=== PATIENT | male | born 2005 | race Caucasian/White ===

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

== ENCOUNTER → 2023-01-23 | Outpatient (CLI) | payer OTHER | END | disposition home or self-care (01) | LOC: US 10:30 | PROVIDERS: ATTEND Physician Assistant | DX: R03.0 Elevated blood-pressure reading, without diagnosis of hypertension (principal) ==

== ENCOUNTER 2024-08-09 01:22 | Emergency (ER) | payer OTHER ==
[~2024-08-09] VITALS: Ht 185.4 cm; Wt 122.5 kg
[2024-08-09] MEDS ORDERED: ENALAPRIL20 MG PO (01:32)
[2024-08-09] MEDS ORDERED: AVPAK AZITHROM250 MG PO (04:33)
== END 2024-08-09 04:52 | disposition home or self-care (01) ==
LOC: ED 01:22
DX: J40 Bronchitis, not specified as acute or chronic (principal); Z20.822 Contact with and (suspected) exposure to COVID-19; Z98.890 Other specified postprocedural states